=== PATIENT | female | born 1955 | race Caucasian/White ===

== ENCOUNTER → 2019-06-22 | Outpatient (CLI) | payer OTHER ==
[2019-06-22 13:07] LABS: ABSOLUTE EOSINOPHILS # (AUTO) 0.1 10^3/uL (0.0-0.6); ABSOLUTE LYMPHOCYTES (AUTO) 2.4 10^3/uL (0.5-4.7); ABSOLUTE MONOCYTES (AUTO) 0.5 10^3/uL (0.1-1.4); ABSOLUTE NEUT (AUTO) 7.1 10^3/uL (1.7-8.2); BASOPHILS % (AUTO) 0.4 % (0-2); EOSINOPHILS % (AUTO) 1.4 % (0-6); HEMATOCRIT 41.9 % (36.0-47.0); HEMOGLOBIN 14.6 g/dL (12.0-15.5); LYMPHOCYTES % (AUTO) 23.6 % (13-45); MEAN CORPUSCULAR HEMOGLOBIN 29.5 pg (27.0-33.4); MEAN CORPUSCULAR HGB CONC 34.9 g/dL (32.0-36.0); MEAN CORPUSCULAR VOLUME 84 fl (80-97); MONOCYTES % (AUTO) 4.7 % (3-13); PLATELET COUNT 244 10^3/uL (150-450); RED BLOOD COUNT 4.97 10^6/uL (3.72-5.28); SEGMENTED NEUTROPHILS % (AUTO) 69.9 % (42-78); TOTAL CELLS COUNTED % (AUTO) 100 %; WHITE BLOOD COUNT 10.1 10^3/uL (4.0-10.5)
[2019-06-22 13:31] LABS: ALBUMIN 4.4 g/dL (3.5-5.0); ALKALINE PHOSPHATASE 146 U/L (38-126); ANION GAP 10 (5-19); ASPARTATE AMINO TRANSFERASE 20 U/L (14-36); BILIRUBIN,DIRECT 0.1 mg/dL (0.0-0.4); BILIRUBIN,TOTAL 0.6 mg/dL (0.2-1.3); BLOOD UREA NITROGEN 10 mg/dL (7-20); CALCIUM 9.6 mg/dL (8.4-10.2); CARBON DIOXIDE 29 mmol/L (22-30); CHLORIDE 99 mmol/L (98-107); CHOLESTEROL 219.82 mg/dL (0-200); GLUCOSE 286 mg/dL (75-110); POTASSIUM 3.9 mmol/L (3.6-5.0); TOTAL PROTEIN 7.4 g/dL (6.3-8.2); TRIGLYCERIDES 442 mg/dL (<150)
[2019-06-22 13:42] LABS: DIRECT LDL 109 mg/dL (<100)
== END ==
LOC: OD 11:56
DX: Z00.00 Encounter for general adult medical examination without abnormal findings (principal)
CPT/HCPCS: 36415; 80053; 80061; 83036; 84443; 85025

== ENCOUNTER → 2019-07-22 | Outpatient (CLI) | payer OTHER ==
--- NOTE | 2019-07-22 17:45 | WOMENS IMAGING REPORT ---
EXAM DESCRIPTION: TRANSVAGINAL ULTRASOUND COMPLETED DATE/TIME: 07/22/2019 11:01 am REASON FOR STUDY: N95.0 POSTMENOPAUSAL BLEEDING N95.0 POSTMENOPAUSAL BLEEDING COMPARISON: None. TECHNIQUE: Dynamic and static grayscale images acquired of the pelvis via transvaginal approach and recorded on PACS. Additional selected color Doppler and spectral images recorded. LIMITATIONS: None. FINDINGS: UTERUS: Normal size. Smooth contour. ENDOMETRIAL STRIPE: Marked heterogenous thickening with indistinct margins and increased echogenicity . Measures at least 4.9 cm. CERVIX: No nabothian cysts. RIGHT OVARY AND DOPPLER: Ovary not visualized. LEFT OVARY AND DOPPLER: 3.7 x 4.7 x 5.1 cm cyst. FREE FLUID: None noted. OTHER: No other significant finding. MEASUREMENTS: UTERUS: 6.4 x 6.8 x 10.0 cm. ENDOMETRIAL STRIPE: Markedly thickened. RIGHT OVARY: Not visualized. LEFT OVARY: Replaced by a large cystic mass. IMPRESSION: 1. MARKED HETEROGENOUS THICKENING AND INDISTINCT MARGINS IN THE ENDOMETRIAL CAVITY. THIS AREA MEASUR ES AT LEAST 4.9 CM. COULD BE DUE TO ENDOMETRIAL NEOPLASM. ENDOMETRIAL BIOPSY IS WARRANTED. 2. LARGE 5.1 CM CYST IN THE LEFT OVARY. FOLLOW-UP CLINICALLY INDICATED. COMMENT: Followup of asymptomatic benign ovarian cysts detected by ultrasound in POSTMENOPAUSAL pat ients Simple cyst *? 1 cm: no followup *>1 and ? 7 cm: yearly followup ultrasound *>7 cm: MRI or surgical consultation Hemorrhagic cyst *Early postmenopausal (50-55 yo) any size: followup US to ensure resolution *Late postmenopausal (>55 yo): consider surgical evaluation Endometrioma *Initial US 6-12 week followup, then yearly if not surgically removed Dermoid *Yearly followup US if not surgically removed Note: If cyst is clinically symptomatic or otherwise concerning, other followup may be warranted. Menopause is considered age 50 by radiologist unless age of last period is known. Based on recommenda tions of the Society for Radiologists in Ultrasound Consensus Conference Statement 2010 on management of asymptomatic ovarian and other adnexal cysts imaged at ultrasound. TECHNICAL DOCUMENTATION: JOB ID: [id number] [employer]- All Rights Reserved Rev-12/18 Reading location - IP/workstation name: [email or web address] [id number]
== END ==
LOC: WI 09:50
PROVIDERS: ATTEND Family Medicine
DX: N95.0 Postmenopausal bleeding (principal); N83.292 Other ovarian cyst, left side
CPT/HCPCS: 76830

== ENCOUNTER 2019-10-21 11:19 | Emergency (ER) | payer MEDICARE, MEDICAID, OTHER ==
--- NOTE | 2019-10-21 11:29 | ER Document Report ---
ED Medical Screen (RME) - General Stated Complaint: POST OP COMPLICATIONS Time Seen by Provider: 10/21/19 11:26 Primary Care Provider: MICAH BEE MD [Primary Care Provider] - Follow up as needed Information source: Patient - This 64-year-old female who presented to the emergency room 1 week status post hysterectomy she feels as though there is a foreign body similar to like a tampon sliding down her vagina her surgeon sent her into the ER for evaluation TRAVEL OUTSIDE OF THE [place] IN LAST 30 DAYS: No - Related Data Allergies/Adverse Reactions: Penicillins Allergy (Verified 10/21/19 11:24) Doctor's Discharge - Discharge Referrals: MICAH BEE MD [Primary Care Provider] - Follow up as needed
[2019-10-21 12:12] LABS: ALBUMIN 4.4 g/dL (3.5-5.0); ALKALINE PHOSPHATASE 115 U/L (38-126); ANION GAP 7 (5-19); ASPARTATE AMINO TRANSFERASE 22 U/L (14-36); BILIRUBIN,TOTAL 0.5 mg/dL (0.2-1.3); BLOOD UREA NITROGEN 15 mg/dL (7-20); CALCIUM 9.8 mg/dL (8.4-10.2); CARBON DIOXIDE 29 mmol/L (22-30); CHLORIDE 101 mmol/L (98-107); GLUCOSE 233 mg/dL (75-110); POTASSIUM 4.6 mmol/L (3.6-5.0); TOTAL PROTEIN 7.1 g/dL (6.3-8.2)
--- NOTE | 2019-10-21 15:16 | ER Document Report ---
ED General - General Chief Complaint: Other Stated Complaint: POST OP COMPLICATIONS Time Seen by Provider: 10/21/19 11:26 Primary Care Provider: MICAH BEE MD [NO LOCAL MD] - Follow up as needed TRAVEL OUTSIDE OF THE [place] IN LAST 30 DAYS: No - HPI Notes: Patient is a 64-year-old female who is status post robotic total abdominal hysterectomy and bilateral salpingo-oophorectomy for endometrial cancer on October 09. This was done in [place]. 4 days ago patient states she noticed some string-like discharge, that felt very firm. She communicated this information to her gynecology/oncologist office, and they urged her to come immediately to the emergency department for further evaluation. This discharge of this string was 4 days ago, she has had no further discharge. No fevers or chills. No nausea or vomiting. She states she was actually out grocery shopping when she was contacted and told to come to the emergency department for further evaluation. - Related Data Allergies/Adverse Reactions: Penicillins Allergy (Verified 10/21/19 11:24) Home Medications: Metformin Past Medical History - General Information source: Patient - Social History Smoking Status: Never Smoker Chew tobacco use (# tins/day): No Frequency of alcohol use: None Drug Abuse: None Family History: Reviewed & Not Pertinent Patient has suicidal ideation: No Patient has homicidal ideation: No Endocrine Medical History: Reports: Hx Diabetes Mellitus Type 2 Malignancy Medical History: Reports: Other - Endometrial cancer Past Surgical History: Reports: Hx Hysterectomy Review of Systems - Review of Systems Female Genitourinary: See HPI -: Yes All other systems reviewed and negative Physical Exam - Vital signs Vitals: Temp Pulse Resp BP Pulse Ox 97.6 F 91 18 180/88 H 97 10/21/19 11:29 10/21/19 11:29 10/21/19 11:29 10/21/19 11:29 10/21/19 11:29 - Notes Notes: Vital signs reviewed, please refer to chart. Head is normocephalic, atraumatic. Pupils equal round, reactive to light. Neck is supple without meningismus. Heart is regular rate and rhythm. Lungs are clear to auscultation bilaterally. Abdomen is soft, nontender, normoactive bowel sounds throughout. She has bandages in place over laparoscopic abdominal surgical wounds. No signs of dehiscence or erythema. Extremities without cyanosis, clubbing. Posterior calves are nontender. Peripheral pulses are equal. Skin is warm and dry. Pelvic exam is performed with Clare Root RN, present in the room. Normal external genitalia. There was some suture material noted in the posterior four chette of the vagina. Patient was unable to tolerate an adult size speculum. A pediatric speculum was used, which offered only limited visibility of the vaginal cuff. There was no signs of dehiscence, no foreign body. Course - Re-evaluation Re-evalutation: 10/21/19 15:19 Patient presents to the emergency department for evaluation. Her labs are unremarkable. Her pelvic exam revealed some suture material that seems to be in place, but no signs of dehiscence. She has no other discharge. Her abdominal exam is entirely benign. I do not suspect any big dehiscence at this time, but I explained to the patient that my view of her vaginal cuff was extremely limited secondary to her discomfort. I explained to her that I could not rule out a small dehiscence and she voiced understanding. She states that she has had no further symptoms, has not had any further discharge or objects expelled, and she feels comfortable following up as an outpatient as scheduled. I explained to her that any new discharge, progression of symptoms, should prompt her to return immediately and she voiced understanding. - Vital Signs Vital signs: Temp Pulse Resp BP Pulse Ox 97.6 F 91 18 180/88 H 97 10/21/19 11:29 10/21/19 11:29 10/21/19 11:29 10/21/19 11:29 10/21/19 11:29 - Laboratory Result Diagrams: 10/21/19 11:39 Laboratory results interpreted by me: 10/21/19 11:39 Creatinine 0.41 L Glucose 233 H Discharge - Discharge Clinical Impression: POSTOPERATIVE EVALUATION Condition: Stable Disposition: HOME, SELF-CARE Additional Instructions: Your exam is limited secondary to pain, but there is suture in place, without any signs of bleeding or infection, on the bottom part of your vagina. If you develop increased pain, fevers, any sort of discharge, or any other new or concerning symptoms, please return immediately to the emergency department for reevaluation. Otherwise, follow-up with your regularly scheduled postop appointment. Referrals: MICAH BEE MD [NO LOCAL MD] - Follow up as needed
[2019-10-21 15:28] VITALS: BP 206/96
== END 2019-10-21 15:27 | disposition home or self-care (01) ==
LOC: ER 11:19
DX: T81.9XXA Unspecified complication of procedure, initial encounter (principal); X58.XXXA Exposure to other specified factors, initial encounter; E11.9 Type 2 diabetes mellitus without complications; Z88.0 Allergy status to penicillin; Z79.84 Long term (current) use of oral hypoglycemic drugs; Z90.710 Acquired absence of both cervix and uterus
CPT/HCPCS: 80053; 99283

== ENCOUNTER → 2019-12-16 | Outpatient (CLI) | payer MEDICARE, MEDICAID ==
--- NOTE | 2019-12-16 14:03 | RADIOLOGY REPORT (SQ) ---
EXAM DESCRIPTION: CT ABD/PELVIS WITH IV ONLY IMAGES COMPLETED DATE/TIME: 12/16/2019 1:52 pm REASON FOR STUDY: C54.1 MALIGNANT NEOPLASM OF ENDOMETRIUM C54.1 MALIGNANT NEOPLASM OF ENDOMETRIUM COMPARISON: None. TECHNIQUE: CT scan of the abdomen and pelvis performed using helical scanning technique with dynamic intravenous contrast injection. No oral contrast. Images reviewed with lung, soft tissue, and bone windows. Reconstructed coronal and sagittal MPR images reviewed. Delayed images for evaluation of the urinary system also acquired. All images stored on PACS. All CT scanners at this facility use dose modulation, iterative reconstruction, and/or weight based d osing when appropriate to reduce radiation dose to as low as reasonably achievable (ALARA). [facility]: Dose Right [facility]: CareDose [facility]: Dose Right [facility]: Teradose 4D [facility]: Gecko CONTRAST TYPE AND DOSE: contrast/concentration: Isovue 350.00 mg/ml; Total Contrast Delivered: 94.0 ml; Total Saline Delivered: 71.0 ml RENAL FUNCTION: Creatinine 0.5 RADIATION DOSE: CT Rad equipment meets quality standard of care and radiation dose reduction techniq ues were employed. CTDIvol: 15.9 - 16.0 mGy. DLP: 1808 mGy-cm.. LIMITATIONS: None. FINDINGS: LOWER CHEST: No significant findings. No nodules or infiltrates. LIVER: There is fatty infiltration of liver. Mild hepatomegaly. The liver measures just over 18 cm in cranial caudal dimensions. SPLEEN: Normal size. No focal lesions. PANCREAS: No masses. No significant calcifications. No adjacent inflammation or peripancreatic fluid collections. Pancreatic duct not dilated. GALLBLADDER: No identified stones by CT criteria. No inflammatory changes to suggest cholecystitis. ADRENAL GLANDS: No significant masses or asymmetry. RIGHT KIDNEY AND URETER: No solid masses. No significant calcifications. No hydronephrosis or hyd roureter. LEFT KIDNEY AND URETER: No solid masses. No significant calcifications. No hydronephrosis or hydr oureter. AORTA AND VESSELS: No aneurysm. No dissection. Renal arteries, SMA, celiac without stenosis. RETROPERITONEUM: No retroperitoneal adenopathy, hemorrhage or masses. BOWEL AND PERITONEAL CAVITY: No masses or inflammatory changes. No free fluid or peritoneal masses. APPENDIX: Normal. PELVIS: No mass. No free fluid. Normal bladder. ABDOMINAL WALL: There is nodular soft tissue attenuation left lying extending from lower margin of th e spleen to the mid pole the left kidney. Etiology of this is uncertain this could be posttraumatic, infectious or inflammatory. Metastatic disease is unlikely. BONES: No significant or acute findings. OTHER: No other significant finding. IMPRESSION: Hepatomegaly with fatty infiltration of liver. Soft tissue attenuation in the left flank as described most likely posttraumatic or inflammatory. No other significant findings in the abdomen or pelvis. TECHNICAL DOCUMENTATION: JOB ID: [id number] Quality ID # [id number]: Final reports with documentation of one or more dose reduction techniques (e.g., Au tomated exposure control, adjustment of the mA and/or kV according to patient size, use of iterative reconstruction technique) 2010 [employer]- All Rights Reserved Reading location - IP/workstation name: [email or web address]
== END ==
LOC: RAD 13:16
PROVIDERS: ATTEND Student in an Organized Health Care Education/Training Program
DX: C54.1 Malignant neoplasm of endometrium (principal); K76.0 Fatty (change of) liver, not elsewhere classified
CPT/HCPCS: 74177; 82565

== ENCOUNTER → 2020-02-17 | Outpatient (CLI) | payer MEDICARE, MEDICAID ==
[2020-02-17 17:04] LABS: ABSOLUTE EOSINOPHILS # (AUTO) 0.1 10^3/uL (0.0-0.6); ABSOLUTE LYMPHOCYTES (AUTO) 0.9 10^3/uL (0.5-4.7); ABSOLUTE MONOCYTES (AUTO) 0.3 10^3/uL (0.1-1.4); ABSOLUTE NEUT (AUTO) 4.5 10^3/uL (1.7-8.2); BASOPHILS % (AUTO) 0.2 % (0-2); EOSINOPHILS % (AUTO) 1.6 % (0-6); HEMATOCRIT 38.1 % (36.0-47.0); HEMOGLOBIN 13.4 g/dL (12.0-15.5); LYMPHOCYTES % (AUTO) 16.1 % (13-45); MEAN CORPUSCULAR HEMOGLOBIN 30.9 pg (27.0-33.4); MEAN CORPUSCULAR HGB CONC 35.2 g/dL (32.0-36.0); MEAN CORPUSCULAR VOLUME 88 fl (80-97); MONOCYTES % (AUTO) 5.6 % (3-13); PLATELET COUNT 202 10^3/uL (150-450); RED BLOOD COUNT 4.33 10^6/uL (3.72-5.28); RED CELL DISTRIBUTION WIDTH 13.2 % (11.5-14.0); SEGMENTED NEUTROPHILS % (AUTO) 76.5 % (42-78); TOTAL CELLS COUNTED % (AUTO) 100 %; WHITE BLOOD COUNT 5.9 10^3/uL (4.0-10.5)
[2020-02-17 17:22] LABS: ALBUMIN 4.3 g/dL (3.5-5.0); ALKALINE PHOSPHATASE 115 U/L (38-126); ANION GAP 8 (5-19); ASPARTATE AMINO TRANSFERASE 23 U/L (14-36); BILIRUBIN,TOTAL 0.4 mg/dL (0.2-1.3); BLOOD UREA NITROGEN 13 mg/dL (7-20); CALCIUM 9.4 mg/dL (8.4-10.2); CARBON DIOXIDE 25 mmol/L (22-30); CHLORIDE 104 mmol/L (98-107); GLUCOSE 258 mg/dL (75-110); POTASSIUM 4.1 mmol/L (3.6-5.0); TOTAL PROTEIN 6.8 g/dL (6.3-8.2)
== END ==
LOC: OD 16:15
PROVIDERS: ATTEND Radiology Radiation Oncology
DX: C54.2 Malignant neoplasm of myometrium (principal)
CPT/HCPCS: 36415; 80053; 85025

== ENCOUNTER → 2020-05-01 | Outpatient (CLI) | payer MEDICARE, MEDICAID ==
--- NOTE | 2020-05-01 11:31 | RADIOLOGY REPORT (SQ) ---
EXAM DESCRIPTION: MRI LUMBAR SPINE WITHOUT IMAGES COMPLETED DATE/TIME: 05/01/2020 9:57 am REASON FOR STUDY: C54.1 ABNORMAL FINDINGS ON DX IMAGING OF LIVER AND BILIARY TRACT C54.1 MALIGNANT NEOPLASM OF ENDOMETRIUM COMPARISON: None. TECHNIQUE: Sagittal and Axial imaging includes T1, T2, STIR and gradient echo sequences. Coronal T2/ HASTE imaging. LIMITATIONS: None. FINDINGS: VISUALIZED UPPER ABDOMEN: Limited evaluation. No acute or suspicious findings suggested. SEGMENTATION: No transitional anatomy. The lowest well-developed disc space is labeled L5-S1. ALIGNMENT: Mild convex right scoliosis VERTEBRAE: Intact. BONE MARROW: No significant marrow abnormality. Changes typical of prior radiation. DISC SIGNAL: Desiccation multiple levels. POSTERIOR ELEMENTS: Generally intact. No pars defect evident. HARDWARE: None in the spine. CORD AND CONUS: Normal in size and signal intensity. Conus at the appropriate level. SOFT TISSUES: No aortic aneurysm seen. No bulky retroperitoneal adenopathy or mass. No paraspinal mas s or fluid. L1-L2: No significant spinal stenosis or exit foraminal stenosis. L2-L3: Mild spinal stenosis due to left paracentral disc herniation and facet arthropathy. L3-L4: Mild spinal stenosis due to disc bulge and facet arthropathy. L4-L5: Mild spinal stenosis due to disc bulge and facet arthropathy. L5-S1: Disc bulge and facet arthropathy. Mild neural foraminal narrowing bilaterally. LOWER THORACIC: Incompletely imaged. No stenosis seen. SACRUM: Visualized upper sacrum intact. OTHER: No other significant findings. IMPRESSION: Spondylosis and facet arthropathy. Mild spinal stenosis L2- 3 through L4-5. More acute appearing disc herniation at L2-3. TECHNICAL DOCUMENTATION: JOB ID: [id number] 2010 [employer]- All Rights Reserved Reading location - IP/workstation name: [email or web address]
== END ==
LOC: RAD 08:37
PROVIDERS: ATTEND Radiology Radiation Oncology
DX: C54.1 Malignant neoplasm of endometrium (principal)
CPT/HCPCS: 72148